=== PATIENT | male | born 1940 | race Caucasian/White ===

== ENCOUNTER → 2016-12-06 06:04 | Outpatient (CLI) | payer MEDICARE, OTHER ==
[~2016-12-06] VITALS: Ht 177.8 cm; Wt 87.7 kg
--- NOTE | ~2016-12-06 | HEMODYNAMI ---
PATIENT:MARIN CORONA MEDICAL RECORD: [id number] : 44 LOCATION:D.CAT ADMISSION DATE: 12/06/16 Generatedon:12/06/20168:44 Patient name: MARIN CORONA Patient #: [id number] SSN: : 1940 Date of study: 12/06/2016 Page: Of Hemodynamic Procedure Report Patient Data Patient Demographics Procedure consent was obtained First Name: MARIN Gender: Male Last Name: CJ : 1940 [facility] Initial: STACIA Age: 76 year(s) Patient #: [id number] Race: Additional ID: [id number] Contact details Address: [address] [place] [address] [facility] State: [place] City: [place] Zip code: [address] Past Medical History History of disease Date Diagnosis Comments CAD Peripheral vascular disease Chronic lung disease->COPD Allergies Allergen Reaction Date Comments Reported Other allergy 05/12/2015 BENICAR Other allergy 12/06/2016 Maciel Hamm Admission Admission Data Admission Date: 12/06/2016 Admission Time: 8:00 Insurance Payor: Private health insurance, Medicare Height (in.): 69 BSA: 2.03 (m2) Height (cm.): 175.26 BMI: 28.5 (kg/m2) Weight (lbs.): 193 Weight (kg.): 87.54 Lab Results Lab Result Date: 12/06/2016 Lab Result Time: 6:45 Biochemistry Name Units Result Min Max BUN mg/dl 10 --(-*--)-- 7 18 Creatinine mg/dl 0.8 --(-*--)-- 0.6 1.3 CBC Name Units Result Min Max Hematocrit % 42.2 --(*---)-- 42 54 Hemoglobin g/dl 14 --(*---)-- 13.5 17.5 Procedure Procedure Types Cath Procedure Diagnostic Procedure C LH w/Coronaries PCI Procedure Coronary Stent Initial Miscellaneous Procedures Moderate Sedation up to 30 minutes Peripheral Cath Diagnostic Procedure Cath Peripheral Dkbdg-Wfxvmjd-Lem-Off Procedure Description Procedure Date Procedure Date: 12/06/2016 Procedure Start Time: 8:13 Procedure End Time: 8:42 Procedure Staff Name Function Alistair Forde MD Performing Physician Kim Giang RN Nurse Laisha Russell RT Scrub Sudhakar Gutierrez RT Monitor Procedure Data Cath Procedure Fluoroscopy Diagnostic fluoroscopy Total fluoroscopy Time: 5.9 time: 5.9 min min Diagnostic fluoroscopy Total fluoroscopy dose: 672 dose: 672 mGy mGy Contrast Material Contrast Material Type Amount (ml) Isovue 300 170 Entry Location Entry Primary Successful Side Size Upsize Upsize Entry Closure Succes sful Closure Location (Fr) 1 (Fr) 2 (Fr) Remarks Device Remarks Femoral Right 5 Fr 6 Fr Vascade artery Short Closure System Estimated blood loss: 10 ml Diagnostic catheters Device Type Used For End Catheter Placement Cordis 5Fr 3DRC Catheter Procedure (MP) Cordis 5Fr Pigtail Procedure Catheter (MP) Cordis 5Fr JL 4.0 Procedure Catheter (MP) Cordis 5Fr 3DRC Catheter Procedure (MP) Procedure Complications No complications Procedure Medications Medication Administration Route Dosage Heparin Flush Bag added to field 2 bags (1000units/500ml NS) Lidocaine 2% added to field 20 Oxygen NC 2 l/min Radial Cocktail added to field 1 syringe (Verapomil 2mg/Nitro 400mcg/Heparin 1500units) Versed I.V. 1 mg Fentanyl I.V. 50 mcg Versed I.V. 1 mg Fentanyl I.V. 50 mcg Versed I.V. 1 mg Fentanyl I.V. 50 mcg Versed I.V. 1 mg Fentanyl I.V. 50 mcg Versed I.V. 1 mg Fentanyl I.V. 50 mcg Versed I.V. 1 mg Fentanyl I.V. 50 mcg Heparin Bolus I.V. 4000 units Versed I.V. 1 mg Integrilin (Bolus I.V. 7.9 ml 2mg/ml) Plavix P.O. 600 mg Hemodynamics Rest BSA: 2.03 (m2) HGB: 14 (g/dl) O2 Consumption: Estimated: 233.72 (ml/min) O2 Cons umption indexed: Estimated:115.13 (ml/min/m) Heart Rate: 70 (bpm) Snapshots Pre Cath Intra NCS Post Cath Vital Signs Time Heart Resp SPO2 etCO2 [id number] NIBP (mmHg) Rhythm Pain Sedation Rate (ipm) (%) (mmHg) (mmHg) Status Level (bpm) 7:42:14 91 16 100 0 0 171/82(134) NSR 0 (11) 10(A) , No pain 7:46:40 62 17 100 0 0 165/78(131) NSR 0 (11) 10(A) , No pain 7:51:04 66 14 100 0 0 153/79(125) NSR 0 (11) 10(A) , No pain 7:55:24 59 20 98 0 0 152/70(116) NSR 0 (11) 10(A) , No pain 7:59:46 69 14 95 0 0 139/67(112) NSR 0 (11) 10(A) , No pain 8:04:04 71 22 95 0 0 139/67(109) NSR 0 (11) 10(A) , No pain 8:08:20 61 24 95 0 0 135/73(115) NSR 0 (11) 10(A) , No pain 8:12:36 69 20 98 0 0 146/72(119) NSR 0 (11) 10(A) , No pain 8:16:55 73 21 95 0 0 138/72(112) NSR 0 (11) 10(A) , No pain 8:21:15 69 16 95 0 0 132/61(110) NSR 0 (11) 9(A) , No pain 8:25:27 81 25 95 0 0 131/70(102) NSR 0 (11) 9(A) , No pain 8:29:36 93 16 96 0 0 151/83(119) NSR 0 (11) 9(A) , No pain 8:33:50 104 16 94 0 0 148/99(120) NSR 0 (11) 10(A) , No pain 8:38:02 107 16 96 0 0 152/94(139) NSR 0 (11) 10(A) , No pain 8:42:16 102 20 97 0 0 157/90(118) NSR 0 (11) 10(A) , No pain Medications Time Medication Route Dose Verified Delivered Reason Notes Effectiveness by by 7:36:10 Heparin Flush added 2 bags Alistair Sainz used for Bag to Maurisio Forde MD procedure (1000units/500ml field NS) 7:36:18 Lidocaine 2% added 20ml Alistair Alistair used for to vial Maurisio Forde MD procedure field 7:36:28 Oxygen NC 2 l/min Alistair Kim Per physician Maurisio Giang RN 7:49:58 Radial Cocktail added 1 Alistair Alistair used for (Verapomil to syringe Maurisio Forde MD procedure 2mg/Nitro field 400mcg/Heparin 1500units) 8:11:06 Versed I.V. 1 mg Alistair Kim for sedation Maurisio Giang RN 8:11:12 Fentanyl I.V. 50 mcg Alistair Kim for sedation Maurisio Giang RN 8:13:11 Versed I.V. 1 mg Alistair Kim for sedation Maurisio Giang RN 8:13:29 Fentanyl I.V. 50 mcg Alistair Kim for sedation Maurisio Giang RN 8:15:29 Versed I.V. 1 mg Alistair Kim for sedation Maurisio Giang RN 8:15:37 Fentanyl I.V. 50 mcg Alistair Kim for sedation Maurisio Giang RN 8:18:09 Versed I.V. 1 mg Alistair Kim for sedation Maurisio Giang RN 8:18:13 Fentanyl I.V. 50 mcg Alistair Kim for sedation Maurisio Giang RN 8:20:09 Versed I.V. 1 mg Alistair Kim for sedation Maurisio Giang RN 8:20:16 Fentanyl I.V. 50 mcg Alistair Kim for sedation Maurisio Giang RN 8:29:32 Versed I.V. 1 mg Alistair Kim for sedation Maurisio Giang RN 8:29:35 Fentanyl I.V. 50 mcg Alistair Kim for sedation Maurisio Giang RN 8:32:52 Heparin Bolus I.V. 4000 Alistair Kim for dose units Maurisio Giang RN anticoagulation verified with dr forde 8:34:53 Versed I.V. 1 mg Alistair Kim for sedation Maurisio Giang RN 8:34:55 Integrilin I.V. 7.9 ml Alistair Kim for 2.1 m l (Bolus 2mg/ml) Maurisio Giang RN antiplatelet wasted therapy 8:41:15 Plavix P.O. 600 mg Alistair Giang RN antiplatelet therapy Procedure Log Time Note 7:24:29 Laisha Russell RT(R) sent for patient. Start room use. 7:24:31 Time tracking: Regular hours 7:24:36 Plan of Care:Hemodynamics will remain stable., Cardiac rhythm will remain stable., Comfort level will be maintained., Respiratory function will remain adequate., Patient/ family verbilizes understanding of procedure., Procedure tolerated without complication., Recovers from procedure without complications.. 7:33:51 Diagnostic Cath Status : Elective 7:34:33 Patient received from Pre/Post Procedure Room to CCL 1 Alert and oriented. Tansferred to table in Supine position. 7:34:34 Warm blankets applied, and nicole hugger turned on for patient comfort. 7:34:35 Correct patient and procedure confirmed by team. 7:34:36 Signed procedure consent form obtained from patient. 7:34:37 ECG and BP/O2 sat monitors applied to patient. 7:36:10 Heparin Flush Bag (1000units/500ml NS) 2 bags added to field was administered by Alistair Forde MD; used for procedure; 7:36:18 Lidocaine 2% 20ml vial added to field was administered by Alistair Forde MD; used for procedure; 7:36:28 Oxygen 2 l/min NC was administered by Kim Giang RN; Per physician; 7:40:58 Vital chart was started 7:49:58 Radial Cocktail (Verapomil 2mg/Nitro 400mcg/Heparin 1500units) 1 syringe added to field was administered by Alistair Forde MD; used for procedure; 7:50:35 Baseline sample Acquired. 7:50:39 Rhythm: sinus rhythm 7:50:41 Full Disclosure recording started 7:50:50 H&P Date Dictated: 12/05/2016 Within 30 days and on chart., H&P Addendum completed by physician on day of procedure. (MUST COMPLETE FOR ALL OUTPATIENTS). 7:50:51 Pre-procedure instructions explained to patient. 7:50:52 Pre-op teaching completed and patient verbalized understanding. 7:51:33 Family in waiting room. 7:51:34 Patient NPO since Midnight. 7:51:47 Patient allergic to Other allergyLevaquin,Benicar 7:51:49 Is the patient allergic to Iodine/contrast media? No. 7:51:51 Is patient on blood thinner?No 7:51:52 Patient diabetic? No. 7:51:56 Previous problem with sedation/anesthesia? No ? 7:51:57 Snore? Yes 7:51:58 Sleep apnea? Yes 7:51:59 Deviated septum? No 7:52:00 Opens mouth fully? Yes 7:52:00 Sticks out tongue? Yes 7:52:07 Airway obstruction? Yes COPD 7:52:09 Dentures? No ? 7:52:13 Modified Piter's test Ulnar < 7 seconds 7:52:15 Patient pain scale 0/10 ?. 7:52:24 IV patent on arrival in left forearm with 0.9% NaCl at [facility]. 7:53:03 Lab Result : BUN 10 mg/dl 7:53:03 Lab Result : Hemoglobin 14 g/dl 7:53:03 Lab Result : Creatinine 0.8 mg/dl 7:53:03 Lab Result : Hematocrit 42.2 % 7:53:06 Lab results completed and on chart. 7:53:09 Right Radial & Right Groin area was prepped with chlora-prep and draped in sterile fashion 7:53:10 Alarms reviewed by R. N. 7:53:10 Sharps counted by scrub and verified by R.N. 7:53:37 Physician paged 7:53:40 Use device set Radial Dx 7:53:42 MBrace Wrist Support opened to sterile field. 7:53:42 Tegaderm 4 x 4 opened to sterile field. 7:53:44 Acist Manifold opened to sterile field. 7:53:45 Acist Hand Control opened to sterile field. 7:53:46 Acist Syringe opened to sterile field. 7:53:46 Medline Cath Pack opened to sterile field. 7:53:47 Bag Decanter opened to sterile field. 7:53:48 St Nima 260cm J .035 wire opened to sterile field. 7:54:06 Patient Height : 69 cm 7:54:13 Patient Weight : 193 kg 7:54:13 Insurance Payor : Private health insurance, Medicare 8:00:18 Zero performed for pressure channel P1 8:00:38 Zero performed for pressure channel P1 8:01:15 Zero performed for pressure channel P1 8:10:33 --------ALL STOP TIME OUT------ 8:10:34 Final Timeout: patient, procedure, and site verified with staff and physician. All members of the team are in agreement. 8:10:39 Right Radial & Right Groin site verified by team. 8:10:43 Physical assessment completed. ASA score P 2 - A patient with mild systemic disease as per Alistair Forde MD. 8:10:47 Sedation plan: IV Moderate Sedation Versed, Fentanyl 8:11:06 Versed 1 mg I.V. was administered by Kim Giang RN; for sedation; 8:11:12 Fentanyl 50 mcg I.V. was administered by Kim Giang RN; for sedation; 8:13:01 Procedure started. 8:13:11 Versed 1 mg I.V. was administered by Kim Giang RN; for sedation; 8:13:15 Local anesthetic to right radial artery with Lidocaine 2% by Alistair Forde MD.INITIAL ACCESS ONLY 8:13:29 Fentanyl 50 mcg I.V. was administered by Kim Gaing RN; for sedation; 8:15:29 Versed 1 mg I.V. was administered by Kim Giang RN; for sedation; 8:15:37 Fentanyl 50 mcg I.V. was administered by Kim Giang RN; for sedation; 8:15:40 Unable to gain radial access. Moving to femoral approach. 8:17:09 Terumo 5Fr [place] Sheath opened to sterile field. 8:17:26 Use device set Multipack Set 8:17:29 Diagnostic Infinity 5Fr Multipack catheter opened to sterile field. 8:17:57 Local anesthetic to right femoral artery with Lidocaine 2% by Alistair Forde MD.ADDITIONAL ACCESS 8:17:59 A 5 Fr sheath was inserted into the Right Femoral artery 8:18:09 Versed 1 mg I.V. was administered by Kim Giang RN; for sedation; 8:18:13 Fentanyl 50 mcg I.V. was administered by Kim Giang RN; for sedation; 8:20:09 Versed 1 mg I.V. was administered by Kim Giang RN; for sedation; 8:20:16 Fentanyl 50 mcg I.V. was administered by Kim Giang RN; for sedation; 8:20:59 [address] FIRM 260CM glide wire opened to sterile field. 8:21:22 A Cordis 5Fr 3DRC Catheter (MP) was advanced over the wire and used for Procedure. 8:22:00 Terumo TORQUE DEVICE PLASTIC .038 opened to sterile field. 8:22:33 glide wire advanced wire advanced. 8:22:38 Catheter removed. 8:22:44 A Cordis 5Fr Pigtail Catheter (MP) was advanced over the wire and used for Procedure. 8:23:08 LV gram done using ROSE 8:23:10 Injector settings: Ml/sec: 10, Volume: 20, 8:23:42 EF : 40 % 8:23:51 Abdominal angiogram w/ runoff was performed. 8:24:02 Left leg runoff performed. 8:24:29 Right leg runoff performed. 8:25:22 Catheter exchanged over wire. 8:25:33 A Cordis 5Fr JL 4.0 Catheter (MP) was advanced over the wire and used for Procedure. 8:26:17 LCA angiography performed. 8:28:01 Catheter exchanged over wire. 8:28:13 A Cordis 5Fr 3DRC Catheter (MP) was advanced over the wire and used for Procedure. 8:28:29 Terumo 6Fr [place] Sheath opened to sterile field. 8:28:30 Merit BasixCompak Inflation Kit opened to sterile field. 8:29:23 Catheter removed. 8:29:32 Versed 1 mg I.V. was administered by Kim Giang RN; for sedation; 8:29:35 Fentanyl 50 mcg I.V. was administered by Kim Giang RN; for sedation; 8:29:39 Sheath upsized to a 6 Fr Short. 8:30:37 Cordis 6FR XBLAD 3.5 guide catheter opened to sterile field. 8:30:45 6 Fr xblad 3.5 guide catheter was inserted over the wire 8:30:55 LCA angiography performed. 8:32:52 Heparin Bolus 4000 units I.V. was administered by Kim Giang RN; for anticoagulation; dose verified with dr forde 8:34:07 Platinum Food [employer] Sci Choice PT Extra Support J 300cm .014 gu opened to sterile field. 8:34:17 Proceeding to intervention. 8:34:29 pt Extra support wire advanced. 8:34:35 Wire advanced across lesion. 8:34:53 Versed 1 mg I.V. was administered by Kim Giang RN; for sedation; 8:34:55 Integrilin (Bolus 2mg/ml) 7.9 ml I.V. was administered by Kim Giang RN; for antiplatelet therapy; 2.1 ml wasted 8:35:19 Inflation Number: 1 A Medtronic Integrity 2.5 X 22 stent was prepped and advanced across the Mid LAD. The stent was deployed at 21 ANDRÉS for 0:10 (min:sec). 8:35:22 Stent catheter was removed intact over wire. 8:35:23 Wire removed. 8:35:23 Guide catheter removed. 8:35:29 Vascade 6/7 Fr Closure Device opened to sterile field. 8:36:14 Sheath removed intact; hemostasis achieved with Vascade Closure System to the Right Femoral artery. 8:36:15 Procedure ended.(Physican Out) 8:36:24 Fluoroscopy time 05.90 minutes. 8:36:28 Flurop Dose total: 672 8:36:28 Fluoroscopy dose: 672 mGy 8:36:32 Contrast amount:Isovue 300 170ml. 8:36:34 Sharps counted by scrub and verified by R.N. 8:36:37 Insertion/operative site no bleeding no hematoma. 8:36:39 Post-op/insertion site Right Femoral artery dressed using a 4 x 4 and Tegaderm. 8:36:43 Post right femoral artery:stable, soft, clean and dry 8:36:46 Post Procedure Pulses reassessed and unchanged 8:36:48 Post-procedure physical assessment completed. ASA score P 2 - A patient with mild systemic disease as per Alistair Forde MD. 8:36:50 Post procedure rhythm: unchanged. 8:36:52 Estimated blood loss: 10 ml 8:36:54 Post procedure instruction explained to patient.Patient verbalizes understanding. 8:36:55 Patient needs reinforcement of post procedure teaching. 8:41:15 Plavix 600 mg P.O. was administered by Kim Giang RN; for antiplatelet therapy; 8:41:18 Procedure type changed to Cath procedure, Diagnostic procedure, LHC, LHC w/Coronaries, PCI procedure, Coronary Stent Initial, Miscellaneous Procedures, Moderate Sedation up to 30 minutes, Peripheral Cath Diagnostic Procedure, Cath Peripheral, Rbtwf-Bwukowr-Kqj-Off 8:42:26 Procedure and supply charges have been captured, reviewed, submitted and are correct. 8:42:29 Procedure Complication : No complications 8:42:32 Vital chart was stopped 8:42:34 See physician's report for complete and final results. 8:42:35 Report given to Pre/Post Procedure Room. 8:42:37 Patient transfered to Pre/Post Procedure Room with Stretcher. 8:42:41 Procedure ended. 8:42:41 Full Disclosure recording stopped 8:42:51 ACC-PCI Only Patient was given prescriptions, or instructed by Alistair Forde MD to start/continue the following medications upon discharge: Plavix 8:43:18 End room use (Document Last) Intervention Summary Intervention Notes Time ActionType Lesion and Equipment Action# Pressure Duration Attributes Used 8:35:19 Place stent Mid LAD Medtronic 1 21 00:10 Integrity 2.5 X 22 stent Device Usage Item Name Manufacture Quantity Catalog Number Hospital Part Current Minim al Lot# / Charge Number Stock Stock Serial# Code MBrace [facility] 1 140-0250-00 [id number] 37840 438608 5 Wrist Vascular Support Dynamics Tegaderm 4 3M 1 [id number] 217633 495803 930923 5 x 4 Acist Acist 1 08599 385250 840325 180182 5 Manifold Medical Systems Inc Acist Hand Acist 1 68267 770741 536743 960360 5 Control Medical Systems Inc Acist Acist 1 85058 698613 287905 734541 20 Syringe Medical Systems Inc Medline Cardinal 1 [id number] 796039 54784 718499 5 Cath Pack Health Bag Microtek 1 2002S 988687 51836 312615 [address] N[address] Nima 1 888941 052336 605642 055837 30 260cm J .035 wire Terumo 5Fr Terumo 1 [id number] 173467 071490 796023 40 [place] Sheath Diagnostic Cardinal 1 [id number] 140304 07852 822300 30 KnoCoity Health 5Fr Multipack catheter LiveIntent 1 [id number] 367258 147914 5 ROADRUNNER FIRM 260CM glide wire Cordis 5Fr Cardinal 1 359861 5 3DRC Health Catheter (MP) Terumo [place] 1 TD01 099880 244294 449449 5 TORQUE Scientific DEVICE PLASTIC .038 Cordis 5Fr Cardinal 1 996016 5 Pigtail Health Catheter (MP) Cordis 5Fr Cardinal 1 576998 5 JL 4.0 Health Catheter (MP) Terumo 6Fr Terumo 1 [id number] 095459 758337 881629 40 [place] Sheath Merit Merit 1 [id number] 593581 049355 097549 15 [employer] Medical Inflation Kit Cordis 6FR Cardinal 1 [id number] 614464 883291 453232 10 XBLAD 3.5 Health guide catheter [place] Sci [place] 1 [id number] 319276 113388 442978 5 Choice PT Scientific Extra Support J 300cm .014 gu Medtronic Medtronic 1 [id number] 175195 827054 6 [id number] Integrity 2.5 X 22 stent Vascade 02/21 Cardiva 1 [id number] 110521 714565 030441 5 Fr Closure Medical, Device Inc. Signature Audit [place] Stage Time Signature Unsigned Intra-Procedure 12/06/2016 Sudhakar Gutierrez 8:44:28 AM RT(R) Signatures Monitor : Sudhakar Gutierrez RT Signature : Date : Time : [place] [id number] [place] [address]
[~2016-12-06 06:04] MED LIST: ATIVAN0.5 MG PO; ATROVENT 0.02%2.5 ML INH; AVODART0.5 MG PO; BAYER CHEWABLE81 MG PO; CARDIZEM60 MG PO; EFFIENT10 MG PO; FLOMAX0.4 MG PO; HYDROCODONE-APA1 TAB PO; K-DUR20 MEQ PO; LASIX40 MG PO; LEVAQUIN500 MG PO; MIRALAX527 GM PO; NAMENDA5 MG PO; NEXIUM40 MG PO; NITROQUICK0.4 MG SL; NITROSTAT0.4 MG; NORVASC10 MG PO; NORVASC5 MG PO; PLAVIX75 MG PO; PRILOSEC20 MG PO; PROPAFENONE HC300 MG PO; PROTONIX40 MG PO; Rythmol PO; SPIRIVA18 MCG INH; SYMBICORT 16010.2 GM INH; VITAMIN D3400 UNI1 PO; XOPENEX 1.1.25 MG/3 UPD
[2016-12-06 06:37] VITALS: BP 162/69; Ht 177.8 cm; Wt 87.7 kg
[2016-12-06 07:02] LABS: BASOPHILS 0.5 % (0.0-2.0); EOSINOPHILS 3.2 % (0-7); HEMATOCRIT 42.4 % (42.0-54.0); IMMATURE GRANULOCYTES 0.4 % (0-5); LYMPHOCYTES 14.7 % (15-50); MCH 30.4 pg (26.0-34.0); MCV 92.2 fL (80.0-100.0); MEAN PLATELET VOLUME 11.8 fL (7.4-10.4); MONOCYTES 9.5 % (2-11); NEUTROPHILS 71.7 % (40-80); PLATELET COUNT 154 10x3/uL (130-400); RDW 14.2 % (11.5-14.5); WBC 7.8 10x3/uL (4.8-10.8)
[2016-12-06 07:17] LABS: CALC OSMOLALITY 283 mosm/kg (275-300); CALCIUM 8.6 mg/dL (8.5-10.1); CARBON DIOXIDE 27.6 mmol/L (21.0-32.0); CHLORIDE - SERUM 107 mmol/L (98-107); CREATININE - SERUM 0.8 mg/dL (0.6-1.3); GLUCOSE 102 mg/dL (74-106); POTASSIUM - SERUM 3.8 mmol/L (3.5-5.1); SODIUM 143 mmol/L (136-145); UREA NITROGEN 10 mg/dL (7-18); eGFR NON AFRICAN AMERICAN > 90 mL/min (90-120)
--- NOTE | 2016-12-06 09:15 | NUR ---
RESTING IN BED WITH EYES CLOSED, VSS. 2L NC, NO RESP DISTRESS NOTED. NO C/O CHEST PAIN OR NAUSEA. RIGHT GROIN DRESSING CDI, NO BLEEDING OR HEMATOMA NOTED. INSTRUCTED PT TO KEEP HEAD FLAT ON PILLOW AND RIGHT LEG STRAIGHT.
--- NOTE | 2016-12-06 09:45 | NUR ---
RESTING IN BED WITH EYES CLOSED, VSS. 2L NC, NO RESP DISTRESS NOTED. NO C/O CHEST PAIN OR NAUSEA AT THIS TIME. RIGHT GROIN DRSG CDI, NO BLEEDING OR HEMATOMA NOTED. WILL CONTINUE TO MONITOR.
--- NOTE | 2016-12-06 10:00 | NUR ---
COFFEE GIVEN. NO C/O NAUSEA OR CHEST PAIN AT THIS TIME. RIGHT GROIN CDI, NO BLEEDING OR HEMATOMA NOTED. VSS.
--- NOTE | 2016-12-06 10:30 | NUR ---
RIGHT GROIN CDI, NO BLEEDING OR HEMATOMA NOTED. VSS. NO C/O AT THIS TIME. AT BEDSIDE, CALL LIGHT WITHIN REACH.
--- NOTE | 2016-12-06 11:30 | NUR ---
SANDWICH TRAY GIVEN. DENIES ANY NEEDS. WILL CONTINUE TO MONITOR.
--- NOTE | 2016-12-06 12:30 | NUR ---
LEFT FA PIV D/C'D WITH CATHETER INTACT, BAND AID TO SITE. UP TO SIDE OF BED TO GET DRESSED.
--- NOTE | 2016-12-06 12:50 | NUR ---
UP TO RESTROOM TO VOID.
--- NOTE | 2016-12-06 13:02 | NUR ---
DISCHARGE INSTRUCTIONS GIVEN, VERBALIZED UNDERSTANDING. TAKEN OUT VIA WHEELCHAIR BY CATH SNOUT PULLER. LEFT FACILITY WITH FAMILY MEMBER AND ALL PERSONAL BELONGINGS.
--- NOTE | 2016-12-12 14:38 | OP ---
PATIENT NAME: MARIN CORONA MEDICAL RECORD: [id number] :44 LOCATION:D.CAT ADMISSION DATE: SURGEON: HEMALATHA KWAN MD DATE OF OPERATION: 12/06/2016 PROCEDURES: 1. PTCA stent, LAD. 2. Left heart catheterization. 3. Selective coronary angiography. 4. Left ventriculogram. INDICATIONS: Angina and coronary artery disease. PROCEDURE IN DETAIL: After informed consent was obtained and after detailed explanation of risks, benefits as well as alternative therapies, the patient elected to proceed with angiogram and angioplasty. The right femoral area was prepped and draped in normal sterile fashion. The right femoral artery was cannulated via modified Seldinger technique with placement of 6-Qatari sheath. All catheters exchanged through this sheath. FINDINGS: Left ventriculogram was performed in standard 30-degree ROSE view, reveals inferobasal hypokinesis, ejection fraction 40%. SELECTIVE CORONARY ANGIOGRAPHY: 1. RCA is chronically totally occluded. Distal RCA fills via [id number] collaterals. 2. Left anterior descending has previously placed stent proximally. This is widely patent; however, after this, there is 75+ percent stenosis. 3. Left circumflex has mild irregularities, but no flow-limiting stenosis. PTCA STENT OF THE LAD: The stent used was a 2.5 x 22 mm Integrity. Result was 0% residual stenosis. OVERALL IMPRESSION: Successful percutaneous transluminal coronary angioplasty stent of the left anterior descending going from 75% initial stenosis to 0% residual stenosis. TRANSINT:[id number] Voice Confirmation ID: [id number] DOCUMENT ID: [id number] HEMALATHA KWAN MD at 1438 CC: [id number] DICTATION DATE: 12/06/16 0840 BRASS MOLDER HELPER: 12/06/16 0852 DEP CLI 12/06/16 [place] [id number]
--- NOTE | 2016-12-12 14:38 | OP ---
PATIENT NAME: MARIN CORONA MEDICAL RECORD: [id number] :42 LOCATION:D.CAT ADMISSION DATE: SURGEON: HEMALATHA KWAN MD DATE OF OPERATION: 12/06/2016 PROCEDURES: 1. Aortofemoral runoff. 2. Abdominal aortography. INDICATION: Claudication and peripheral vascular disease. PROCEDURE IN DETAIL: After informed consent was obtained and after detailed explanation of risks, benefits as well as alternative therapies, the patient elected to proceed with angiogram and aortofemoral runoff. The right femoral artery had a preexisting sheath from coronary intervention. All catheters exchanged through this sheath. FINDINGS: Abdominal aortography was performed. The catheter was pulled down for aortofemoral runoff. Abdominal aortography does reveal significant abdominal aortic aneurysm, appears to be greater than 5 cm, the outer delineation would be better evaluated by CT or ultrasound. There is no flow limiting stenosis in the abdominal aorta. RIGHT LEG: A. Iliac. The common iliac is heavily calcified, moderately diffusely diseased, but no flow-limiting stenosis. External iliac has previously placed stent. This is widely patent. The external iliac is as well heavily calcified with moderate diffuse disease. B. Femoral system: The common and deep femoral are widely patent. Superficial femoral has multiple areas of 80% to 90% diffuse heavily calcified stenosis. C. Popliteal and infrapopliteal vessels: The popliteal is patent and infrapopliteal vessels are severely diffusely diseased. There is no real runoff to the foot. LEFT LEG: A. Iliac: The common internal and external iliacs are heavily calcified, moderately diffusely diseased, but no discrete flow-limiting stenosis. B. Femoral system: The common and deep femoral are widely patent. Superficial femoral has multiple areas of severe diffuse disease, heavy calcification. C. Popliteal and infrapopliteal vessels: The popliteal is patent. There is no patency of the infrapopliteal vessels, these are severely diffusely diseased. OVERALL IMPRESSION: 1. 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 2. Severe diffuse disease of the superficial femoral areas bilaterally. This is not amenable to transcatheter or surgical revascularization. Continue medical management of the peripheral vascular disease and peripheral risk factors. TRANSINT:[id number] Voice Confirmation ID: [id number] DOCUMENT ID: [id number] OPERATIVE REPORT [id number] MARIN CORONA HEMALATHA TORRES MD at 1438 CC: [id number] DICTATION DATE: 12/06/16 0842 MILK PICKUP DRIVER: 12/06/16 0910 DEP CLI 12/06/16 [place] [id number] [place] [address]
== END | disposition home or self-care (01) ==
LOC: D.CATH 06:04
PROVIDERS: Internal Medicine Interventional Cardiology
DX: I25.119 Atherosclerotic heart disease of native coronary artery with unspecified angina pectoris (principal); I25.82 Chronic total occlusion of coronary artery; I71.4 Abdominal aortic aneurysm, without rupture; I70.213 Atherosclerosis of native arteries of extremities with intermittent claudication, bilateral legs

== ENCOUNTER 2016-12-06 16:27 | Emergency (ER) | payer MEDICARE, OTHER ==
[2016-12-06 06:37] VITALS: BMI 27.7
[2016-12-06 17:52] LABS: APPEARANCE CLEAR (CLEAR); BILIRUBIN NEGATIVE (NEGATIVE); COLOR YELLOW (YELLOW); GLUCOSE NEGATIVE (NEGATIVE); KETONE NEGATIVE (NEGATIVE); LEUKOCYTE ESTERASE TRACE (NEGATIVE); NITRITE NEGATIVE (NEGATIVE); PROTEIN NEGATIVE (NEGATIVE); UROBILINOGEN NORMAL (NORMAL)
[2016-12-06 17:53] LABS: RED CELLS - URINE 0-5 /hpf (0-5); WHITE CELLS - URINE OCC /hpf (0-5)
== END 2016-12-06 18:27 | disposition home or self-care (01) ==
LOC: D.ER → EDBD 16:27 → D.ER 16:27
PROVIDERS: Emergency Medicine
DX: R33.9 Retention of urine, unspecified (principal); I10 Essential (primary) hypertension

== ENCOUNTER 2017-01-26 17:28 | Observation (INO) | payer MEDICARE, OTHER ==
[~2017-01-26] VITALS: Ht 177.8 cm; Wt 88.3 kg
--- NOTE | ~2017-01-26 | OP ---
PATIENT NAME: MARIN CORONA MEDICAL RECORD: [id number] :42 LOCATION:D.M2 D.2120 ADMISSION DATE:01/26/17 SURGEON: VASU PHILLIP M.D. DATE OF OPERATION: 01/29/2017 PROCEDURES PERFORMED: 1. Selective coronary angiography. 2. Left heart catheterization with ventriculogram. 3. Abdominal aortogram. INDICATION: A 76-year-old gentleman who presents with symptoms of angina, 6 weeks out from stenting to LAD. He is also following up for abdominal aortic aneurysm. He has been having abdominal pain. EQUIPMENT USED: A 5-[place] Citizen JL4, Waldemar right, pigtail catheter. TECHNIQUE: A 5-[place] Citizen sheath was inserted in retrograde fashion in the right common femoral artery. Next, selective coronary angiography was performed in standard views using 5-[place] Citizen JL4 and Waldemar right. Left heart catheterization performed using pigtail catheter. The pigtail catheter was then pulled down to the level of T12. Prior injection was performed to visualize the abdominal aorta. CORONARY ANATOMY: 1. Left main: Left main trunk is moderate in caliber. It gives rise to the LAD and circumflex. No stenosis. 2. LAD: This is a large caliber vessel extending to the apex. The proximal vessel has been stented. The stent is widely patent. There is no evidence of restenosis. 3. Circumflex: This vessel is large in caliber. It supplies a large lateral branch in the proximal segment. The circumflex and lateral branch have mild irregularities, but nothing worse than 20%. The circumflex does fill the distal right coronary artery. 4. Right coronary: This vessel is 100% occluded at the proximal segment. This is a chronic occlusion. 5. Left ventricle: Left ventricle is mildly dilated. There is mild LV dysfunction noted. Estimated ejection fraction is in the order of 40%. ABDOMINAL AORTOGRAM: The pigtail catheter was then pulled down to the level of T12. Power injection was performed to visualize the distal aorta. The aorta is heavily calcified. In the infrarenal position, there is a large abdominal aortic aneurysm, which is somewhat saccular. There was slow flow seen throughout. I do not see any evidence of leak. 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 IMPRESSION: 1. Patent stent in the left anterior descending without evidence of restenosis. 2. No progression of coronary artery disease in the kake vessels. 3. He has at least a 5 cm irregular abdominal aortic aneurysm with some aneurysmal segments of the iliac arteries. RECOMMENDATIONS: I will have Dr. Del Toro review his CTA and angiogram. We may need to consider stent grafting to exclude his aneurysm. TRANSINT:[id number] Voice Confirmation ID: [id number] DOCUMENT ID: [id number] OPERATIVE REPORT [id number] MARIN CORONA TIMOTHY E M.D. CC: [id number] DICTATION DATE: 01/29/17 0749 HORSE RACE TIMER: 01/29/17 1032 ADM IN [facility] [address] [place] [address]
--- NOTE | ~2017-01-26 | HEMODYNAMI ---
PATIENT:MARIN CORONA MEDICAL RECORD: [id number] : 44 LOCATION[facility] [id number] ADMISSION DATE: 01/26/17 Generatedon:01/29/20177:48 Patient name: MARIN CORONA Patient #: [id number] SSN: : 1940 Date of study: 01/29/2017 Page: Of Hemodynamic Procedure Report Patient Data Patient Demographics Procedure consent was obtained First Name: MARIN Gender: Male Last Name: CJ : 1940 [facility] Initial: STACIA Age: 76 year(s) Patient #: [id number] Race: Additional ID: [id number] Contact details Address: [address] [place] [address] [facility] State: [place] City: [facility] Zip code: [address] Past Medical History History of disease Date Diagnosis Comments CAD Peripheral vascular disease Chronic lung disease->COPD Allergies Allergen Reaction Date Comments Reported Other allergy 05/12/2015 BENICAR Other allergy 12/06/2016 Levaquin,Benicar Other allergy 01/29/2017 levaquin, benicar Admission Admission Data Admission Date: 01/26/2017 Admission Time: 20:07 Room #: 2120 Height (in.): 70 BSA: 2.06 (m2) Height (cm.): 177.8 BMI: 27.92 (kg/m2) Weight (lbs.): 194.6 Weight (kg.): 88.27 Lab Results Lab Result Date: 01/29/2017 Lab Result Time: 0:00 Biochemistry Name Units Result Min Max BUN mg/dl 19 --(----)*- 7 18 Creatinine mg/dl 1 --(--*-)-- 0.6 1.3 CBC Name Units Result Min Max Hemoglobin g/dl 14.1 --(*---)-- 13.5 17.5 Procedure Procedure Types Cath Procedure Diagnostic Procedure LHC LHC w/Coronaries Miscellaneous Procedures Moderate Sedation up to 30 minutes Peripheral Cath Diagnostic Procedure Abd/Extremity Aortagram Procedure Description Procedure Date Procedure Date: 01/29/2017 Procedure Start Time: 7:16 Procedure End Time: 7:45 Procedure Staff Name Function Phi Mirza MD Performing Physician Contreras Paige RN Nurse Bang Fowler RT Scrub Harsh Glover RT Monitor Esdras Hilario RN Nurse Procedure Data Cath Procedure Fluoroscopy Diagnostic fluoroscopy Total fluoroscopy Time: 6.3 time: 6.3 min min Diagnostic fluoroscopy Total fluoroscopy dose: 718 dose: 718 mGy mGy Contrast Material Contrast Material Type Amount (ml) Isovue 300 129 Entry Location Entry Primary Successful Side Size Upsize Upsize Entry Closure Succes sful Closure Location (Fr) 1 (Fr) 2 (Fr) Remarks Device Remarks Femoral Right 5 Fr Exoseal artery Diagnostic catheters Device Type Used For End Catheter Placement Cordis 5Fr JL 4.0 Left Coronary Catheter (MP) Angiography Cordis 5Fr 3DRC Catheter Right Coronary (MP) Angiography Cordis 5Fr Pigtail LV Angiography Catheter (MP) Procedure Complications No complications Procedure Medications Medication Administration Route Dosage Oxygen NC 2 l/min Lidocaine 2% added to field 20 Heparin Flush Bag added to field 2 bags (1000units/500ml NS) 0.9% NaCl I.V. 100 ml/hr Fentanyl I.V. 50 mcg Fentanyl I.V. 50 mcg Fentanyl I.V. 50 mcg Fentanyl I.V. 50 mcg Hemodynamics Rest BSA: 2.06 (m2) HGB: 14.1 (g/dl) O2 Consumption: Estimated: 257.2 (ml/min) O2 Con sumption indexed: Estimated:124.85 (ml/min/m) Heart Rate: 96 (bpm) Pressure Samples Time Site Value (mmHg) Purpose Heart Use Rate(bpm) 7:37 LV 191/2,15 EDP 86 7:38 AO 184/85(126) Pullback 100 7:38 LV 187/0,15 Pullback 100 Gradients Valve Time Site 1 Site 2 Mean SEP/DFP Peak To Heart Use (mmHg) (sec/min) Peak Rate (mmHg) (bpm) Aortic 7:38 LV AO 22 12 3 100 187/0,15 184/85(126) Calculations Valve P-P Mean Valve Index Valve Source Name Gradient Area Flow (cm2) Aortic 3 22 3 22 Snapshots Pre Cath Intra NCS Post Cath Vital Signs Time Heart Resp SPO2 etCO2 [id number] NIBP (mmHg) Rhythm Pain Sedati on Rate (ipm) (%) (mmHg) (mmHg) Status Level (bpm) 7:02:14 89 17 99 0 0 175/112(156) NSR 6 (11) , 10(A) Intense 7:06:28 101 15 99 0 0 180/119(139) NSR 6 (11) , 10(A) Intense 7:11:47 86 15 98 0 0 174/97(139) NSR 6 (11) , 10(A) Intense 7:17:05 95 18 99 0 0 173/116(146) NSR 3 (11) , 10(A) Tolerable 7:21:25 89 16 99 0 0 181/106(142) NSR 3 (11) , 10(A) Tolerable 7:25:41 87 18 99 0 0 166/110(139) NSR 3 (11) , 10(A) Tolerable 7:30:01 73 17 98 0 0 174/91(129) NSR 3 (11) , 10(A) Tolerable 7:34:19 75 17 98 0 0 171/102(134) NSR 3 (11) , 10(A) Tolerable 7:39:49 91 23 98 0 0 161/92(142) NSR 3 (11) , 10(A) Tolerable 7:44:05 93 16 98 0 0 171/95(136) NSR 0 (11) , 10(A) No pain Medications Time Medication Route Dose Verified Delivered Reason Notes Effec tiveness by by 7:10:48 Oxygen NC 2 Phi Buffie used for l/min Hermes Hilario RN procedure 7:10:55 Lidocaine 2% added 20ml Phi Phi for local to vial Hermes Mirza MD anesthetic field 7:11:02 Heparin Flush added 2 Phi Phi used for Bag to bags Hermes Mirza MD procedure (1000units/500ml field NS) 7:11:13 0.9% NaCl I.V. 100 Phi Buffie Per ml/hr Hermes Hilario RN physician 7:11:30 Fentanyl I.V. 50 Phi Buffie for mcg Hermes Hilario RN sedation 7:16:20 Fentanyl I.V. 50 Phi Buffie for mcg Hermes Hilario RN sedation 7:25:03 Fentanyl I.V. 50 Phi Buffie for mcg Mirza MD Hilario RN sedation 7:32:23 Fentanyl I.V. 50 Phisaen Dew[facility] Hermes Hilario RN sedation Procedure Log Time Note 6:30:27 Harsh Glover RT(R) sent for patient. Start room use. 6:37:38 Time tracking: Regular hours 6:37:42 Plan of Care:Hemodynamics will remain stable., Cardiac rhythm will remain stable., Comfort level will be maintained., Respiratory function will remain adequate., Patient/ family verbilizes understanding of procedure., Procedure tolerated without complication., Recovers from procedure without complications.. 6:47:45 Lab Result : BUN 19 mg/dl 6:47:45 Lab Result : Hemoglobin 14.1 g/dl 6:47:45 Lab Result : Creatinine 1 mg/dl 6:48:29 Patient Weight : 194.6 kg 6:48:52 Patient Height : 70 cm 6:54:30 Patient received from PCU to CCL 1 Alert and oriented. Tansferred to table in Supine position. 6:54:31 Warm blankets applied, and nicole hugger turned on for patient comfort. 6:54:31 Correct patient and procedure confirmed by team. 6:54:32 Signed procedure consent form obtained from patient. 6:54:33 ECG and BP/O2 sat monitors applied to patient. 7:00:04 Vital chart was started 7:03:44 Baseline sample Acquired. 7:03:47 Rhythm: sinus rhythm 7:03:48 Full Disclosure recording started 7:04:56 H&P Date Dictated: 01/27/2017 Within 30 days and on chart.. 7:04:57 Pre-procedure instructions explained to patient. 7:04:58 Pre-op teaching completed and patient verbalized understanding. 7:04:59 Family in patients room. 7:05:01 Patient NPO since Midnight. 7:07:44 Patient allergic to Other allergylevaquin, benicar 7:07:49 Is the patient allergic to Iodine/contrast media? No. 7:07:51 Is patient on blood thinner?Yes 7:07:55 ACC The patient was administered the following blood thiners within the last 24 hours: ACCPlavix 7:07:58 Patient diabetic? No. 7:07:59 ----Pre-sedation anethsthesia assessment.---- 7:08:07 Previous problem with sedation/anesthesia? Yes urine retention 7:08:09 Snore? Yes 7:08:11 Sleep apnea? No 7:08:13 Deviated septum? No 7:08:15 Opens mouth fully? Yes 7:08:16 Sticks out tongue? Yes 7:08:21 Airway obstruction? Yes COPD 7:08:24 Dentures? No ? 7:08:27 Pre procedure: right dorsailis pedis pulse 1+ Palpable, but thready & weak; easily obliterated 7:08:37 Patient pain scale 6/10 ?. 7:09:02 IV patent on arrival in left antecubital with 0.9% NaCl at 10ml/hr. 7:09:07 Lab results completed and on chart. 7:09:10 Right groin area was prepped with chlora-prep and draped in sterile fashion 7:09:11 Alarms reviewed by R. N. 7:09:12 Sharps counted by scrub and verified by R.N. 7:09:13 --------ALL STOP TIME OUT------ 7:09:13 Final Timeout: patient, procedure, and site verified with staff and physician. All members of the team are in agreement. 7:09:15 Right groin site verified by team. 7:09:18 Physical assessment completed. ASA score P 2 - A patient with mild systemic disease as per Phi Mirza MD. 7:09:23 Sedation plan: IV Moderate Sedation Versed, Fentanyl 7:10:21 Use device set Femoral Dx 7:10:22 Acist Syringe opened to sterile field. 7:10:23 Bag Decanter opened to sterile field. 7:10:23 Medline Cath Pack opened to sterile field. 7:10:23 Terumo 5Fr [place] Sheath opened to sterile field. 7:10:24 St Nima 260cm J .035 wire opened to sterile field. 7:10:25 Acist Hand Control opened to sterile field. 7:10:25 Acist Manifold opened to sterile field. 7:10:26 Diagnostic Infinity 5Fr Multipack catheter opened to sterile field. 7:10:26 Tegaderm 4 x 4 opened to sterile field. 7:10:48 Oxygen 2 l/min NC was administered by Esdras Hilario RN; used for procedure; 7:10:55 Lidocaine 2% 20ml vial added to field was administered by Phi Mirza MD; for local anesthetic; 7:11:02 Heparin Flush Bag (1000units/500ml NS) 2 bags added to field was administered by Phi Mirza MD; used for procedure; 7:11:13 0.9% NaCl 100 ml/hr I.V. was administered by Esdras Hilario RN; Per physician; 7:11:30 Fentanyl 50 mcg I.V. was administered by Esdras Hilario RN; for sedation; 7:16:20 Fentanyl 50 mcg I.V. was administered by Esdras Hilario RN; for sedation; 7:16:30 Procedure started. 7:16:51 Local anesthetic to right femoral artery with Lidocaine 2% by Phi Mirza MD.INITIAL ACCESS ONLY 7:17:07 Zero performed for pressure channel P1 7:25:03 Fentanyl 50 mcg I.V. was administered by Esdras Hilario RN; for sedation; 7:29:04 Left groin area was prepped with chlora-prep and draped in sterile fashion 7:31:24 A 5 Fr sheath was inserted into the Right Femoral artery 7:31:31 A Cordis 5Fr JL 4.0 Catheter (MP) was advanced over the wire and used for Left Coronary Angiography. 7:32:23 Fentanyl 50 mcg I.V. was administered by Esdras Hilario RN; for sedation; 7:34:22 LCA angiography performed. 7:34:28 Catheter removed. 7:34:34 A Cordis 5Fr 3DRC Catheter (MP) was advanced over the wire and used for Right Coronary Angiography. 7:34:51 RCA angiography performed. 7:36:48 Catheter removed. 7:36:57 A Cordis 5Fr Pigtail Catheter (MP) was advanced over the wire and used for LV Angiography. 7:38:07 EF : 40 % 7:38:17 LV gram done using ROSE 7:38:18 LV hemodynamics recorded. 7:38:21 Injector settings: Ml/sec: 10, Volume: 20, 7:38:30 Abdominal Aortagram was performed. 7:41:14 Catheter removed. 7:41:20 Contrast amount:Isovue 300 129ml. 7:41:30 Sheath removed intact; hemostasis achieved with Exoseal to the Right Femoral artery. 7:41:49 Procedure ended.(Physican Out) 7:42:55 Cordis 5Fr Exoseal opened to sterile field. 7:43:01 Fluoroscopy time 06.30 minutes. 7:43:06 Fluoroscopy dose: 718 mGy 7:43:06 Flurop Dose total: 718 7:43:07 Sharps counted by scrub and verified by R.N. 7:43:08 Insertion/operative site no bleeding no hematoma. 7:43:11 Post-op/insertion site Right Femoral artery dressed using a 4 x 4 and Tegaderm. 7:43:14 Post right femoral artery:stable 7:43:15 Post Procedure Pulses reassessed and unchanged 7:43:17 Post procedure: right dorsailis pedis pulse 1+ Palpable, but thready & weak; easily obliterated. 7:43:20 Post procedure rhythm: sinus rhythm 7:43:21 Post procedure instruction explained to patient.Patient verbalizes understanding. 7:44:37 Procedure type changed to Cath procedure, Diagnostic procedure, LHC, LHC w/Coronaries, Miscellaneous Procedures, Moderate Sedation up to 30 minutes, Peripheral Cath Diagnostic Procedure, Abd/Extremity, Aortagram 7:44:46 Procedure and supply charges have been captured, reviewed, submitted and are correct. 7:45:05 Procedure Complication : No complications 7:45:08 Vital chart was stopped 7:45:08 See physician's report for complete and final results. 7:45:11 Report given to PCU. 7:45:14 Patient transfered to PCU with Bed. 7:45:16 Procedure ended. 7:45:16 Full Disclosure recording stopped 7:45:21 End room use (Document Last) Device Usage Item Name Manufacture Quantity Catalog Hospital Part Current Minimal Lo t# / Number Charge Number Stock Stock Serial# Code Acist Acist 1 40334 357952 701809 291758 20 Syringe Medical [employer] Inc Bag Microtek 1 2002S 745394 49950 688407 5 [employer] Medline Cardinal 1 [id number] 069627 39718 658571 5 M[employer]X Media Terumo 5Fr Terumo 1 CAZ611 342449 413871 329011 [address] Nima 1 805066 550977 781468 031417 30 260cm J .035 wire Acist Hand Acist 1 78549 415103 067683 205935 5 Control Medical Systems Inc Acist Acist 1 32204 323602 379456 325599 5 mokono Systems Inc Diagnostic Cardinal 1 XL9938 393006 75239 167862 30 Infinity Health 5Fr Multipack catheter Tegaderm 4 3M 1 1626W 030664 207201 981585 5 x 4 Cordis 5Fr Cardinal 1 034182 5 JL 4.0 Health Catheter (MP) Cordis 5Fr Cardinal 1 972174 5 3DRC Health Catheter (MP) Cordis 5Fr Cardinal 1 385638 5 Pigtail Health Catheter (MP) Cordis 5Fr Cardinal 1 EX500 913573 894997 977620 10 [employer] Signature Audit [place] Stage Time Signature Unsigned Intra-Procedure 01/29/2017 Harsh Glover 7:48:52 AM RT(R) Signatures Monitor : Harsh Glover RT Signature : Date : Time : [address] [address]
[2017-01-26 18:14] LABS: BASOPHILS 0.2 % (0-2); EOSINOPHILS 1.4 % (0-7); HEMATOCRIT 41.4 % (42.0-54.0); HEMOGLOBIN 13.4 g/dL (13.5-17.5); IMMATURE GRANULOCYTES 0.7 % (0-5); MCH 30.7 pg (26.0-34.0); MCHC 32.4 g/dL (31.0-37.0); MCV 94.7 fL (80.0-100.0); MEAN PLATELET VOLUME 11.7 fL (7.4-10.4); MONOCYTES 8.9 % (2-11); NEUTROPHILS 74.8 % (40-80); PLATELET COUNT 172 10x3/uL (130-400); RBC 4.37 10x6/uL (4.20-6.10); RDW 14.3 % (11.5-14.5); WBC 8.4 10x3/uL (4.8-10.8)
[2017-01-26 18:32] LABS: ALBUMIN 3.1 g/dL (3.4-5.0); ALKALINE PHOSPHATASE 68 U/L (46-116); ALT (SGPT) 14 U/L (10-68); BILIRUBIN - TOTAL 0.18 mg/dL (0.2-1.3); CALC OSMOLALITY 289 mosm/kg (275-300); CALCIUM 8.4 mg/dL (8.5-10.1); CARBON DIOXIDE 29.5 mmol/L (21.0-32.0); CHLORIDE - SERUM 111 mmol/L (98-107); POTASSIUM - SERUM 4.4 mmol/L (3.5-5.1); PROTEIN - SERUM 6.4 g/dL (6.4-8.2); SODIUM 145 mmol/L (136-145); UREA NITROGEN 20 mg/dL (7-18); eGFR NON AFRICAN AMERICAN 78 mL/min (90-120)
[2017-01-26 18:37] LABS: GLUCOSE 57 mg/dL (74-106)
[2017-01-26 18:47] LABS: CKMB 1.1 U/L (0.0-3.6); CREATINE KINASE 35 UL (21-232)
[2017-01-26 18:48] LABS: CHOL - HDL RATIO 2.6 ratio (2.3-4.9); CHOLESTEROL, TOTAL 156 mg/dL (0-200); HDL CHOLESTEROL 59 mg/dL (32-96); LDL CHOLESTEROL 79 mg/dL (0-100); LDL-HDL RATIO 1.3 ratio (1.5-3.5); TRIGLYCERIDE 90 mg/dL (30-200); TROPONIN-I < 0.017 ng/mL (0.000-0.060)
[2017-01-26 19:00] VITALS: BP 194/79
[2017-01-26 21:52] VITALS: BMI 27.4
[2017-01-26] MEDS ORDERED: XOPENEX 1.1.25 MG/3 UPD (22:46)
[2017-01-26] MEDS ORDERED: SYMBICORT 80-10.2 GM INH (22:46)
[2017-01-26] MEDS ORDERED: ATIVAN0.5 MG PO (22:50)
[2017-01-26] MEDS ORDERED: SPIRIVA18 MCG INH (22:52)
[2017-01-26] MEDS ORDERED: PROPAFENONE HC150 MG PO (22:52)
[2017-01-27] VITALS: BP 141/59
[2017-01-27 01:34] LABS: CKMB 1.3 U/L (0.0-3.6); CREATINE KINASE 27 UL (21-232); TROPONIN-I 0.035 ng/mL (0.000-0.060)
[2017-01-27 04:00] VITALS: BP 114/45
[2017-01-27 07:53] LABS: CKMB 1.4 U/L (0.0-3.6); CREATINE KINASE 25 UL (21-232); TROPONIN-I 0.027 ng/mL (0.000-0.060)
[2017-01-27 08:00] VITALS: BP 160/92
[2017-01-27 11:03] VITALS: Ht 177.8 cm; Wt 88.3 kg
[2017-01-27 11:41] LABS: CKMB 1.5 U/L (0.0-3.6); CREATINE KINASE 25 UL (21-232); TROPONIN-I < 0.017 ng/mL (0.000-0.060)
[2017-01-27 12:00] VITALS: BP 132/48
[2017-01-27 16:00] VITALS: BP 130/57
[2017-01-27 19:00] VITALS: BP 119/53
[2017-01-28] VITALS (7 sets, daily range): BP systolic 122–154; BP diastolic 50–95
[2017-01-28 09:39] LABS: BASOPHILS 0.2 % (0-2); EOSINOPHILS 0.5 % (0-7); HEMATOCRIT 43.8 % (42.0-54.0); HEMOGLOBIN 14.1 g/dL (13.5-17.5); IMMATURE GRANULOCYTES 0.6 % (0-5); MCH 30.5 pg (26.0-34.0); MCHC 32.2 g/dL (31.0-37.0); MCV 94.8 fL (80.0-100.0); MEAN PLATELET VOLUME 11.7 fL (7.4-10.4); MONOCYTES 7.3 % (2-11); NEUTROPHILS 78.4 % (40-80); PLATELET COUNT 165 10x3/uL (130-400); RBC 4.62 10x6/uL (4.20-6.10); RDW 14.5 % (11.5-14.5); WBC 8.4 10x3/uL (4.8-10.8)
[2017-01-28 09:46] LABS: CALC OSMOLALITY 283 mosm/kg (275-300); CALCIUM 8.7 mg/dL (8.5-10.1); CARBON DIOXIDE 29.9 mmol/L (21.0-32.0); CHLORIDE - SERUM 105 mmol/L (98-107); GLUCOSE 88 mg/dL (74-106); POTASSIUM - SERUM 3.9 mmol/L (3.5-5.1); SODIUM 142 mmol/L (136-145); UREA NITROGEN 19 mg/dL (7-18); eGFR NON AFRICAN AMERICAN 78 mL/min (90-120)
[2017-01-29 03:43] VITALS: BP 139/68
== END 2017-01-29 10:35 | disposition home or self-care (01) ==
LOC: D.ER 17:28 → D.M2 20:07 → OBSVTIME 20:07 → D.M2 01-29 10:35
PROVIDERS: Emergency Medicine; ADMIT Internal Medicine Cardiovascular Disease
DX: I71.4 Abdominal aortic aneurysm, without rupture (principal); I25.10 Atherosclerotic heart disease of native coronary artery without angina pectoris; Z95.5 Presence of coronary angioplasty implant and graft; F41.9 Anxiety disorder, unspecified

== ENCOUNTER 2017-02-16 19:04 | Emergency (ER) | payer MEDICARE, OTHER ==
[2017-02-16 01:07] VITALS: BMI 27.4
[~2017-02-16 19:04] MED LIST changes: +HYDROCODON-ACE1 EAC7 PO; +PROPAFENONE HC150 MG PO; +SYMBICORT 80-10.2 GM INH; +UROCIT-K10 MEQ PO
== END 2017-02-16 20:41 | disposition home or self-care (01) ==
LOC: D.ER 19:04
DX: T83.091A Other mechanical complication of indwelling urethral catheter, initial encounter (principal); I71.4 Abdominal aortic aneurysm, without rupture; I10 Essential (primary) hypertension

== ENCOUNTER 2017-02-18 05:43 | Observation (INO) | payer MEDICARE, OTHER ==
[~2017-02-18] VITALS: Ht 177.8 cm; Wt 86.8 kg
[2017-02-18 06:06] LABS: BASOPHILS 0.2 % (0-2); EOSINOPHILS 0.1 % (0-7); HEMATOCRIT 43.1 % (42.0-54.0); HEMOGLOBIN 14.4 g/dL (13.5-17.5); IMMATURE GRANULOCYTES 0.3 % (0-5); LYMPHOCYTES 7.8 % (15-50); MCHC 33.4 g/dL (31.0-37.0); MCV 92.9 fL (80.0-100.0); MEAN PLATELET VOLUME 12.3 fL (7.4-10.4); MONOCYTES 14.1 % (2-11); NEUTROPHILS 77.5 % (40-80); PLATELET COUNT 117 10x3/uL (130-400); RBC 4.64 10x6/uL (4.20-6.10); RDW 14.6 % (11.5-14.5); WBC 12.7 10x3/uL (4.8-10.8)
[2017-02-18 06:45] LABS: ALBUMIN 3.3 g/dL (3.4-5.0); ALKALINE PHOSPHATASE 63 U/L (46-116); ALT (SGPT) 18 U/L (10-68); CALC OSMOLALITY 270 mosm/kg (275-300); CALCIUM 8.6 mg/dL (8.5-10.1); CARBON DIOXIDE 24.1 mmol/L (21.0-32.0); CHLORIDE - SERUM 100 mmol/L (98-107); GLUCOSE 131 mg/dL (74-106); POTASSIUM - SERUM 3.9 mmol/L (3.5-5.1); PROTEIN - SERUM 6.8 g/dL (6.4-8.2); SODIUM 134 mmol/L (136-145); UREA NITROGEN 15 mg/dL (7-18); eGFR NON AFRICAN AMERICAN 78 mL/min (90-120)
[2017-02-18 06:49] LABS: CHOL - HDL RATIO 2.3 ratio (2.3-4.9); CHOLESTEROL, TOTAL 140 mg/dL (0-200); CKMB 0.8 U/L (0.0-3.6); CREATINE KINASE 52 UL (21-232); HDL CHOLESTEROL 61 mg/dL (32-96); LDL CHOLESTEROL 62 mg/dL (0-100); TRIGLYCERIDE 88 mg/dL (30-200); TROPONIN-I < 0.017 ng/mL (0.000-0.060)
--- NOTE | 2017-02-18 08:39 | NUR ---
RECIEVED FROM ER. JASERTY SHOWS SR WITH OCC. PVC. DENIES ANY NEEDS. DR. PHILLIP HERE. DENIES ANY NEEDS. CALL LIGHT IN REACH WITH SR UP
[2017-02-18 08:46] VITALS: BP 131/63
[2017-02-18 11:15] VITALS: BP 131/63; Ht 177.8 cm; Wt 86.8 kg
--- NOTE | 2017-02-18 11:24 | NUR ---
ASSESSMENT COMPLETE PT RESTING QUIETLY NAD NOTED
--- NOTE | 2017-02-18 11:47 | NUR ---
UP TO BATHROOM. TOLORATED WELL. DENIES ANY NEEDS.
[2017-02-18 12:12] VITALS: BP 148/72
--- NOTE | 2017-02-18 14:31 | NUR ---
LYING QUIETLY.DENIES ANY NEEDS. CALL LIGHT IN REACH WITH SR UP. WILL MONITOR
[2017-02-18 16:23] VITALS: BP 135/59
--- NOTE | 2017-02-18 19:15 | NUR ---
INITIAL ROUNDS MADE. PT SITTING UP IN BED WATCHING TV. C/O HE CATHETER AND "CAN'T WAIT TIL AM WHEN DOC COMES TO TAKE IT OUT". PT ALSO NOW C/O INDIGESTION AND REQUESTING THE PROTONIX HE REFUSED EARLIER AND BACK PAIN THAT HE REFUSES THE OFFERED DOSE OF NORCO.
[2017-02-18 20:00] VITALS: BP 127/72
[2017-02-19] VITALS: BP 138/58
--- NOTE | 2017-02-19 02:02 | NUR ---
RESTING WELL WITH EYES CLOSED, CONT TO MONITOR.
[2017-02-19 04:00] VITALS: BP 137/54
--- NOTE | 2017-02-19 05:33 | NUR ---
PT REPORTS EMPTYING OWN CATHETER STRAIGHT INTO COMMODE WITHOUT MEASURING.
[2017-02-19 05:51] LABS: BASOPHILS 0.1 % (0-2); EOSINOPHILS 0.2 % (0-7); HEMATOCRIT 39.5 % (42.0-54.0); IMMATURE GRANULOCYTES 0.3 % (0-5); LYMPHOCYTES 9.2 % (15-50); MCH 30.6 pg (26.0-34.0); MCHC 32.9 g/dL (31.0-37.0); MCV 92.9 fL (80.0-100.0); MEAN PLATELET VOLUME 12.1 fL (7.4-10.4); MONOCYTES 15.3 % (2-11); NEUTROPHILS 74.9 % (40-80); PLATELET COUNT 121 10x3/uL (130-400); RBC 4.25 10x6/uL (4.20-6.10); RDW 14.5 % (11.5-14.5); WBC 11.5 10x3/uL (4.8-10.8)
[2017-02-19 06:45] LABS: CALC OSMOLALITY 272 mosm/kg (275-300); CALCIUM 7.8 mg/dL (8.5-10.1); CHLORIDE - SERUM 102 mmol/L (98-107); GLUCOSE 111 mg/dL (74-106); POTASSIUM - SERUM 3.7 mmol/L (3.5-5.1); SODIUM 136 mmol/L (136-145); UREA NITROGEN 13 mg/dL (7-18); eGFR NON AFRICAN AMERICAN 78 mL/min (90-120)
[2017-02-19 08:00] VITALS: BP 101/68
--- NOTE | 2017-02-19 10:24 | NUR ---
RATIONALE FOR SCD'S EXPLAINED. REFUSES SCD'S
--- NOTE | 2017-02-19 10:59 | NUR ---
TELEMETRY SR. UP AMBULATING HALLWAY. HE INTACT.
--- NOTE | 2017-02-19 11:17 | NUR ---
150CC STERILE WATER INSERTED INTO BLADDER AND HE DCD. WILL MONITPOR VOID.
[2017-02-19 12:17] VITALS: BP 153/66
--- NOTE | 2017-02-19 14:11 | NUR ---
IV AND TELEMETRY DCD. DC PLANS GIVEN. UNDERSTANDING VOICED. ESCORTED TO CAR BY W/C.
--- NOTE | 2017-02-20 15:06 | EC ---
PATIENT:MARIN CORONA DATE OF SERVICE: 02/18/17 SEX: M MEDICAL RECORD: [id number] DATE OF : 42 LOCATION:D. D.212 AGE OF PATIENT: 76 ADMISSION DATE: 02/18/17 REFERRING PHYSICIAN: INTERPRETING PHYSICIAN: VASU MIRZA M.D. ECHOCARDIOGRAM REPORT ECHO CHARGES 4 ECHO COMPLETE CLINICAL DIAGNOSIS: AFIB HX CAD/STENT/PVD ECHOCARDIOGRAPHIC MEASUREMENTS (adult normal given) AC root (d.<3.7cm) 3.8 LV Septum d (<1.2 cm> 1.7 Valve Excursion 1.5 LV Septum (systole) 1.9 Left Atria (s.<4.0cm> 4.0 LVPW d(<1.2cm) 1.8 RV (d.<2.3cm) 5.1 LVPW (sytole) 2.1 LV diastole(<5.6CM) 5.9 MV E-F(>70mm/sec) LV systole 4.3 LVOT Diameter 1.5 MV exc.(>10mm) 1.3 Est.ejection fraction (50-75%) Pericardial Effusion N DOPPLER: LVIT A 91.0 E 71.0 LA RVSP 37 LVOT 132 AOP1/2T Asc. Ao 252 RVOT 101 RA PA 133 AV Gradient Peak 25.35 AV Mean 14.93 AV Area 1.0 MV Gradient Peak 4.59 MV Mean 1.52 MV Area COMMENTS: Knock Up Assembler: Al GOMEZ Public Safety Teacher:2 Dr. Mirza TAPE# PACS DATE OF SERVICE: 02/19/2017 INDICATION: Atrial fibrillation. DESCRIPTION: Left ventricle was mildly dilated. Left ventricular hypertrophy is present. His ejection is in the order of 50% to 55%. Mitral valve is structurally normal. There is mild regurgitation noted. Left atrium is mildly dilated. The aortic valve leaflets are slightly thickened. Peak gradient across the valve is 25 mmHg with a mean of 14 mmHg. There is mild insufficiency noted as well. Right ventricle is mildly dilated. Tricuspid valve is ECHOCARDIOGRAM REPORT [id number] MARIN CORONA structurally normal. There is mild regurgitation seen. Right atrium is mildly dilated. There is no pericardial effusion noted. IMPRESSION: 1. Left ventricular hypertrophy with preserved ejection fraction of 50% to 55%. 2. Mild aortic stenosis with mild insufficiency. 3. Mild mitral regurgitation. 4. Mild tricuspid regurgitation. TRANSINT:[id number] Voice Confirmation ID: [id number] DOCUMENT ID: [id number] VASU MIRZA M.D. at 1506 CC: [id number] DICTATION DATE: 02/19/17 1223 TELEVISION MECHANIC: 02/19/17 1302 DIS IN 02/19/17 [place] [id number] [place] [id number]
== END 2017-02-19 14:11 | disposition home or self-care (01) ==
LOC: D.ER 05:43 → OBSVTIME 07:28 → D.M2 07:28
PROVIDERS: Emergency Medicine; ADMIT Family Medicine
DX: I48.0 Paroxysmal atrial fibrillation (principal); I25.10 Atherosclerotic heart disease of native coronary artery without angina pectoris; Z95.5 Presence of coronary angioplasty implant and graft; I71.4 Abdominal aortic aneurysm, without rupture; I10 Essential (primary) hypertension; F41.9 Anxiety disorder, unspecified; J44.9 Chronic obstructive pulmonary disease, unspecified; N40.0 Benign prostatic hyperplasia without lower urinary tract symptoms; N20.0 Calculus of kidney; Z87.891 Personal history of nicotine dependence; H26.9 Unspecified cataract

== ENCOUNTER → 2017-02-23 20:39 | Outpatient (CLI) | payer MEDICARE, OTHER ==
[2017-02-18 11:15] VITALS: BMI 27.6
[2017-02-23 21:08] LABS: APPEARANCE CLEAR (CLEAR); BILIRUBIN NEGATIVE (NEGATIVE); COLOR YELLOW (YELLOW); GLUCOSE NEGATIVE (NEGATIVE); KETONE NEGATIVE (NEGATIVE); LEUKOCYTE ESTERASE 2+ (NEGATIVE); NITRITE NEGATIVE (NEGATIVE); PROTEIN TRACE mg/dL (NEGATIVE); UROBILINOGEN NORMAL (NORMAL)
[2017-02-23 21:09] LABS: BACTERIA MODERATE /hpf (NONE SEEN); WHITE CELLS - URINE 25-50 /hpf (0-5)
== END | disposition home or self-care (01) ==
LOC: D.LABREF 20:39
PROVIDERS: Urology
DX: N39.0 Urinary tract infection, site not specified (principal)

== ENCOUNTER → 2017-07-04 10:52 | Outpatient (CLI) | payer MEDICARE, OTHER ==
[2017-02-18 11:15] VITALS: BMI 27.6
== END | disposition home or self-care (01) ==
LOC: D.CT 10:52
DX: I71.4 Abdominal aortic aneurysm, without rupture (principal)